=== PATIENT | female | born 1990 | race Caucasian/White ===

== ENCOUNTER 2020-05-11 20:41 | Emergency (ER) | payer MEDICAID ==
--- NOTE | 2020-05-11 21:15 | ER Document Report ---
ED Medical Screen (RME) - General Chief Complaint: Abdominal Pain Stated Complaint: ABDOMINAL PAIN Time Seen by Provider: 05/11/20 21:10 Mode of Arrival: Ambulatory Information source: Patient Notes: 29-year-old female presents to ED for lower abdominal pain. She states last menstrual cycle was January 20. She states she has not been to an GROUP CHIEF OPERATOR she has not had an official test and has not had an ultrasound. She states this is 11 para 10. States she has been in [place] for almost a year and she does not have an GROUP CHIEF OPERATOR in [place]. She denies any vaginal bleeding at this time. Does not remember if she is ever had RhoGam but she is not bleeding at this time. I have greeted and performed a rapid initial assessment of this patient. A comprehensive ED assessment and evaluation of the patient, analysis of test results and completion of medical decision making process will be conducted by an additional ED providers. Physical Exam - Vital signs Vitals: Temp Pulse Resp BP Pulse Ox 99.6 F 94 16 141/77 H 98 05/11/20 20:52 05/11/20 20:52 05/11/20 20:52 05/11/20 20:52 05/11/20 20:52 Course - Vital Signs Vital signs: Temp Pulse Resp BP Pulse Ox 99.6 F 94 16 141/77 H 98 05/11/20 20:52 05/11/20 20:52 05/11/20 20:52 05/11/20 20:52 05/11/20 20:52
--- NOTE | 2020-05-11 22:21 | RADIOLOGY REPORT (SQ) ---
Ultrasound OB follow-up on 05/11/2020 at 9:36 PM CLINICAL INDICATION: Lower abdominal cramping, last menstrual period four months ago COMPARISON: None FINDINGS: Limited sonographic images are obtained throughout the pelvis by transabdominal approach only, both transverse and sagittal images are obtained. Single living intrauterine fetus is noted in variable presentation. Cervical length measures approximately 3.5 cm and the cervix is closed. Placenta is posterior in location with no evidence of placenta previa or abruption. Positive cardiac activity is noted with heart rate of 153 bpm. Normal amount of amniotic fluid is noted with maximum vertical pocket measuring 6.2 cm. Bilateral adnexa were imaged and appear unremarkable but neither ovary was visualized. No free fluid is noted. Estimated gestational age by measurements is an approximately 19 week zero day gestation. Estimated weight is 275 g +/- 41 g. No gross abnormality is noted on limited imaging. IMPRESSION: Single living approximately 19 week intrauterine .
[2020-05-11 22:33] LABS: ABSOLUTE EOSINOPHILS # (AUTO) 0.1 10^3/uL (0.0-0.6); ABSOLUTE LYMPHOCYTES (AUTO) 2.3 10^3/uL (0.5-4.7); ABSOLUTE MONOCYTES (AUTO) 0.7 10^3/uL (0.1-1.4); ABSOLUTE NEUT (AUTO) 6.1 10^3/uL (1.7-8.2); BASOPHILS % (AUTO) 0.4 % (0-2); EOSINOPHILS % (AUTO) 1.1 % (0-6); HEMATOCRIT 32.7 % (36.0-47.0); HEMOGLOBIN 10.8 g/dL (12.0-15.5); LYMPHOCYTES % (AUTO) 24.8 % (13-45); MEAN CORPUSCULAR HEMOGLOBIN 27.3 pg (27.0-33.4); MEAN CORPUSCULAR VOLUME 83 fl (80-97); MONOCYTES % (AUTO) 7.7 % (3-13); PLATELET COUNT 256 10^3/uL (150-450); RED BLOOD COUNT 3.94 10^6/uL (3.72-5.28); RED CELL DISTRIBUTION WIDTH 15.2 % (11.5-14.0); TOTAL CELLS COUNTED % (AUTO) 100 %; WHITE BLOOD COUNT 9.2 10^3/uL (4.0-10.5)
[2020-05-11 22:34] LABS: ALBUMIN 3.8 g/dL (3.5-5.0); ALKALINE PHOSPHATASE 80 U/L (38-126); ANION GAP 5 (5-19); ASPARTATE AMINO TRANSFERASE 17 U/L (14-36); BILIRUBIN,TOTAL 0.3 mg/dL (0.2-1.3); BLOOD UREA NITROGEN 7 mg/dL (7-20); CALCIUM 9.7 mg/dL (8.4-10.2); CARBON DIOXIDE 26 mmol/L (22-30); CHLORIDE 103 mmol/L (98-107); GLUCOSE 82 mg/dL (75-110); POTASSIUM 3.9 mmol/L (3.6-5.0); TOTAL PROTEIN 7.1 g/dL (6.3-8.2)
--- NOTE | 2020-05-12 01:38 | ER Document Report ---
ED GI/ - General Chief Complaint: OB Problem (<20wks) Stated Complaint: ABDOMINAL PAIN Time Seen by Provider: 05/11/20 21:10 Primary Care Provider: [facility] [Provider Group] - [facility] - Follow up tomorrow Mode of Arrival: Ambulatory Notes: Patient is a 29-year-old female who comes emergency department for chief complaint of lower abdominal cramping in the setting of . LMP was January 20, she has not had any VACCINE MANAGER evaluation and has not had an ultrasound at this point. Patient denies current pain, she denies vaginal bleeding or any vaginal fluid/discharge, she denies dysuria, fever, vomiting, flank pain. Pat ient is G 11 P 10. Patient takes no daily medications at this time, denies any surgeries or any past medical history. Past Medical History - General Information source: Patient - Social History Smoking Status: Never Smoker Frequency of alcohol use: None Drug Abuse: None Lives with: Family Family History: Reviewed & Not Pertinent Patient has homicidal ideation: No - Medical History Medical History: Negative Surgical Hx: Negative - Immunizations Immunizations up to date: Yes Hx Diphtheria, Pertussis, Tetanus Vaccination: Yes Review of Systems - Review of Systems Constitutional: No symptoms reported EENT: No symptoms reported Cardiovascular: No symptoms reported Respiratory: No symptoms reported Gastrointestinal: See HPI Genitourinary: See HPI Female Genitourinary: See HPI Musculoskeletal: No symptoms reported Skin: No symptoms reported Hematologic/Lymphatic: No symptoms reported Neurological/Psychological: No symptoms reported Physical Exam - Vital signs Vitals: Temp Pulse Resp BP Pulse Ox 99.6 F 94 16 141/77 H 98 05/11/20 20:52 05/11/20 20:52 05/11/20 20:52 05/11/20 20:52 05/11/20 20:52 - Notes Notes: GENERAL: Alert, interacts well. No acute distress. HEAD: Normocephalic, atraumatic. EYES: Pupils equal, round, and reactive to light. Extraocular movements intact. ENT: Oral mucosa moist, tongue midline. Oropharynx unremarkable. Airway patent. NECK: Full range of motion. Supple. Trachea midline. No lymphadenopathy. LUNGS: Clear to auscultation bilaterally, no wheezes, rales, or rhonchi. No respiratory distress. Non-tender chest wall. HEART: Regular rate and rhythm. No murmur ABDOMEN: Soft, non-tender. Gravid abdomen. EXTREMITIES: Moves all 4 extremities spontaneously. No edema, normal radial and dorsalis pedis pulses bilaterally. No cyanosis. BACK: no cervical, thoracic, lumbar midline tenderness. No saddle anesthesia, normal distal neurovascular exam. Moves all extremities in full range of motion. NEUROLOGICAL: Alert and oriented x3. Normal speech. Cranial nerves II through XII grossly intact. Strength 5/5 in all extremities. PSYCH: Normal affect, normal mood. SKIN: Warm, dry, normal turgor. No rashes or lesions noted. Course - Re-evaluation Re-evalutation: Patient is well-appearing on my exam with no current complaints. Soft benign abdomen. Unremarkable vital signs. CBC, chemistry unremarkable, hCG is elevated, urinalysis shows elevated specific gravity but is otherwise unre markable. RhoGam is not indicated. Ultrasound reviewed and shows a living intrauterine with no concerning findings. No free fluid. On my evaluation patient is standing in the room and requesting to leave. Patient did sit down and discussed the results with me though, I discussed these at length, recommended better hydration to reduce cramps, discussed importance of folic acid/ vitamins, discussed follow-up and return precautions in detail. Patient states appreciation and agreement. Stable, well-appearing, asymptomatic at time of discharge. - Vital Signs Vital signs: Temp Pulse Resp BP Pulse Ox 98.3 F 67 18 110/62 100 05/12/20 03:00 05/12/20 03:00 05/12/20 03:00 05/12/20 03:00 05/12/20 03:00 - Laboratory Result Diagrams: 05/11/20 21:54 05/11/20 21:54 Laboratory results interpreted by me: 05/11/20 05/11/20 05/11/20 21:54 21:54 21:54 Hgb 10.8 L Hct 32.7 L RDW 15.2 H Sodium 134.4 L Beta HCG, Quant 88617.00 H Urine Protein 30 H Urine Urobilinogen 4.0 H Discharge - Discharge Clinical Impression: Abdominal cramping affecting Condition: Stable Disposition: HOME, SELF-CARE Additional Instructions: Your ultrasound shows a living with no concerning findings. Your evaluation does not show any concerning findings in addition to this except for dehydration. Improving your hydration can reduce your cramping. Your blood type is A positive. Follow-up with the health department and VACCINE MANAGER referrals, take folic acid ove [id number]. Return for any concerning symptoms including returned or severe pain, bleeding, passing out, fever, or any other concerning symptoms. [facility] - Follow up tomorrow [facility] [Provider Group] - Follow up as needed
[2020-05-12 01:55] LABS: APPEARANCE,URINE TURBID; BILIRUBIN,URINE NEGATIVE (NEGATIVE); CALCIUM OXALATE CRYSTALS,URINE FEW /HPF; COLOR,URINE YELLOW; GLUCOSE, URINE NEGATIVE (NEGATIVE); KETONES,URINE NEGATIVE (NEGATIVE); LEUKOCYTE ESTERASE,URINE NEGATIVE (NEGATIVE); NITRITE,URINE NEGATIVE (NEGATIVE); PROTEIN,URINE 30 mg/dL (NEGATIVE)
[2020-05-12 03:10] VITALS: BP 110/62
== END 2020-05-12 03:10 | disposition home or self-care (01) ==
LOC: ER 20:41
DX: O26.892 Other specified pregnancy related conditions, second trimester (principal); R10.30 Lower abdominal pain, unspecified; Z3A.15 15 weeks gestation of pregnancy
CPT/HCPCS: 36415; 76805; 80053; 81001; 84702; 85025; 86900; 86901; 99284

== ENCOUNTER 2020-10-05 23:03 | Inpatient (IN) | payer MEDICAID ==
[2020-10-05 23:43] LABS: APPEARANCE,URINE CLOUDY; BILIRUBIN,URINE NEGATIVE (NEGATIVE); COLOR,URINE YELLOW; GLUCOSE, URINE NEGATIVE (NEGATIVE); KETONES,URINE NEGATIVE (NEGATIVE); LEUKOCYTE ESTERASE,URINE LARGE (NEGATIVE); NITRITE,URINE NEGATIVE (NEGATIVE); PROTEIN,URINE 30 mg/dL (NEGATIVE); URINE SPECIFIC GRAVITY 1.018
[2020-10-06] LABS: URINE AMPHETAMINES SCREEN NEGATIVE; URINE BARBITURATES SCREEN NEGATIVE; URINE BENZODIAZEPINES SCREEN NEGATIVE; URINE COCAINE SCREEN NEGATIVE; URINE MARIJUANA (THC) SCREEN NEGATIVE; URINE METHADONE SCREEN NEGATIVE; URINE PHENCYCLIDINE SCREEN NEGATIVE
[2020-10-06] MEDS ORDERED: PENICILLIN G-K 5 MILLION UNIT VIAL ONE ×2 (00:42→05:02)
[2020-10-06] MEDS ORDERED: RINGERS SOLUTION,LACTATED 1,000 ML IV PRN (00:42)
[2020-10-06] MEDS ORDERED: MISOPROSTOL 0.2 MG TABLET ONE (00:42)
[2020-10-06] MEDS ORDERED: RINGERS SOLUTION,LACTATED 500 ML IV ONE (00:42)
[2020-10-06] MEDS ORDERED: PENICILLIN G POTASSIUM 5,000,000 UNIT in DEXTROSE 5%-WATER 100 ML IV ONE (00:42)
[2020-10-06] MEDS ORDERED: OXYTOCIN/0.9 % SODIUM CHLORIDE 30 UNIT/500 ML RTUINJ ONE (00:42)
[2020-10-06] MEDS ORDERED: OXYTOCIN 10 UNIT/ML VIAL ONE (00:42)
[2020-10-06] MEDS ORDERED: LIDOCAINE 1% INJ-PF (10 MG/ML) 30 ML SDV ONE (00:42)
[2020-10-06 01:12] LABS: ABSOLUTE BASOPHILS # (AUTO) 0.1 10^3/uL (0.0-0.2); ABSOLUTE EOSINOPHILS # (AUTO) 0.1 10^3/uL (0.0-0.6); ABSOLUTE LYMPHOCYTES (AUTO) 2.2 10^3/uL (0.5-4.7); ABSOLUTE MONOCYTES (AUTO) 0.6 10^3/uL (0.1-1.4); ABSOLUTE NEUT (AUTO) 6.4 10^3/uL (1.7-8.2); BASOPHILS % (AUTO) 0.9 % (0-2); EOSINOPHILS % (AUTO) 0.7 % (0-6); HEMATOCRIT 34.4 % (36.0-47.0); LYMPHOCYTES % (AUTO) 23.8 % (13-45); MEAN CORPUSCULAR HEMOGLOBIN 30.8 pg (27.0-33.4); MEAN CORPUSCULAR VOLUME 88 fl (80-97); MONOCYTES % (AUTO) 6.6 % (3-13); PLATELET COUNT 223 10^3/uL (150-450); RED BLOOD COUNT 3.91 10^6/uL (3.72-5.28); RED CELL DISTRIBUTION WIDTH 16.6 % (11.5-14.0); TOTAL CELLS COUNTED % (AUTO) 100 %; WHITE BLOOD COUNT 9.4 10^3/uL (4.0-10.5)
[2020-10-06] MEDS ORDERED: PROMETHAZINE HCL INJ 25 MG/1 ML VIAL IV ONE (01:21)
[2020-10-06] MEDS ORDERED: NALBUPHINE HCL INJ 10 MG/1 ML AMPULE IV ONE (01:21)
[2020-10-06] MEDS ORDERED: PROMETHAZINE HCL INJ 25 MG/1 ML VIAL ONE (01:23)
[2020-10-06] MEDS ORDERED: NALBUPHINE HCL INJ 10 MG/1 ML AMPULE ONE (01:23)
--- NOTE | 2020-10-06 04:35 | Admission Physical ---
Datetime Report Generated by CPN: 10/06/2020 04:35 CURRENT ADMISSION Hx Assessment: The History has been Reviewed and is Current Chief Complaint: Uterine Contractions Admit Impression : Term, Intrauterine Admit Plan: Admit to Unit; Initiate Labor Protocol ALLERGIES Medication Allergies: No Medication Allergies: No Known Allergies (10/05/2020) Latex: Latex Allergies (Annotations: Data stored by [facility] on behalf of user) OBSTETRICAL HISTORY EDC: 10/05/2020 00:00 : 11 Para: 10 Term: 10 : 0 SAB: 0 IAB: 0 Ectopic: 0 Livin Cesareans: 0 VBACs: 0 Multiple Births: 0 Gestational Diabetes: No Rh Sensitization: No Incompetent Cervix: No HAYDE: No Infertility: No ART Treatment: No Uterine Anomaly: No IUGR: No Hx Previous C/S: No Macrosomia: No Hx Loss/Stillborn: No PIH: No Hx : No Placenta Previa/Abruption: No Depression/PP Depression: No PTL/PROM: No Post Hemorrhage: No Current Procedures: Ultrasound; NST SEE RECORDS Alcohol: No Marijuana : No Cocaine: No Other Illicit Drugs: No Cigarettes: Former Smoker. [id number] MEDICAL HISTORY Diabetes: No Blood Transfusion: No Pulmonary Disease (Asthma, TB): No Breast Disease: No Hypertension: No Watch And Clock Repairer Surgery: No Heart Disease: No Hosp/Surgery: Yes Autoimmune Disorder: No Anesthetic Complications: No Kidney Disease: No Abnormal Pap Smear: No Neuro/Epilepsy: No Psychiatric Disorders: No Other Medical Diseases: No Hepatitis/Liver Disease: No Significant Family History: No Varicosities/Phlebitis: No Trauma/Violence : No Thyroid Dysfunction: No Medical History Comments: 2005, 2006, 2008, 2009, 2010, 2011, 2013, 2016, 2017, 2019 INFECTIOUS HISTORY Gonorrhea: No Genital Herpes: No Chlamydia: No Tuberculosis: No Syphilis: No Hepatitis: No HIV/AIDS Exposure: No Rash or Viral Illness: No HPV: No PHYSICAL EXAM General: Normal HEENT: Normal Neurologic: Normal Thyroid: Normal Heart: Normal Lungs: Normal Breast: Normal Back: Normal Abdomen: Normal Genitourinary Exam: Normal Extremities: Normal DTRs: Normal Pelvic Type: Adequate Vital Signs: Reviewed; Within Normal Limits VAGINAL EXAM Dilatation: 3 Effacement: 50 Station: -2 Contraction Comments: regular MEMBRANES Membranes: Intact FETUS A EGA: 40.1 Monitoring: External US FHR- Baseline: 125 Variability: Moderate 6-25bpm Accelerations: 15X15 Decelerations: None FHR Category: Category I Presentation: Vertex Admit Comment: 00 10 who presented in active labor with regular contractions and cervical change. _Admit to LDR -NPO and IVFs: LR at 125 cc/hr after 1 liter bolus -CEFM and toco -GBS positive , PCN prophylaxis -Hx of 10 prior SVDs, anticipate PLANS FOR LABOR AND DELIVERY Labor and Delivery: None Pain Management: Medications Feeding Preference: Both Circumcision: Yes INFORMED CONSENT Informed Consent Obtained: Vaginal Delivery; Section Delivery; Risks, Benefits and Alternatives Discussed Signature: with User ID: [email or web address] : with User ID: [email or web address]
[2020-10-06] MEDS: PENICILLIN G POTASSIUM 2,500,000 UNIT in DEXTROSE 5%-WATER 50 ML IV SCH (05:09)
[2020-10-06] MEDS ORDERED: IBUPROFEN 800 MG TABLET ONE (06:44)
[2020-10-06] MEDS ORDERED: GLYCERIN/WITCH HAZEL LEAF 1 EACH MED..WIPE TP PRN (06:54)
[2020-10-06] MEDS ORDERED: ACETAMINOPHEN 650 MG SUPP.RECT PR PRN (06:54)
[2020-10-06] MEDS ORDERED: DIPHENHYDRAMINE HCL 25 MG CAPSULE PO PRN (06:54)
[2020-10-06] MEDS ORDERED: BENZOCAINE/MENTHOL AEROSOL SPRAY 56 ML TOP PRN (06:54)
[2020-10-06] MEDS ORDERED: ACETAMINOPHEN 325 MG TABLET PO PRN (06:54)
[2020-10-06] MEDS ORDERED: MAG HYDROX/AL HYDROX/SIMETH SUSP 30 ML UDCUP PO PRN (06:54)
[2020-10-06] MEDS ORDERED: PSEUDOEPHEDRINE HCL 30 MG TABLET PO PRN (06:54)
[2020-10-06] MEDS ORDERED: ACETAMINOPHEN WITH CODEINE #3 TABLET PO PRN ×2 (06:54)
[2020-10-06] MEDS ORDERED: MAGNESIUM HYDROXIDE SUSP 30 ML UDCUP PO PRN (06:54)
[2020-10-06] MEDS ORDERED: DIBUCAINE 1% OINTMENT 28 GM TP PRN (06:54)
[2020-10-06] MEDS ORDERED: OXYTOCIN/0.9 % SODIUM CHLORIDE 30 UNIT/500 ML RTUINJ IV PRN (06:54)
[2020-10-06] MEDS ORDERED: DIPH/PERTUSS(ACELL)/TETANUS VAC/PF 0.5 ML SYR (>=10YO) IM PRN (06:54)
[2020-10-06] MEDS ORDERED: VARICELLA VACC/PF (1350 UNIT/0.5 ML) 0.5 ML VIAL SUBCUT PRN (06:54)
[2020-10-06] MEDS ORDERED: ZOLPIDEM TARTRATE 5 MG TABLET PO PRN (06:54)
[2020-10-06] MEDS ORDERED: FAMOTIDINE 20 MG TABLET PO PRN (06:54)
[2020-10-06] MEDS ORDERED: MEASLES,MUMPS&RUBELLA VACC/PF 0.5 ML VIAL SUBCUT PRN (06:54)
[2020-10-06] MEDS: FERROUS SULFATE 325 MG TABLET PO SCH ×2 (10:13→17:46)
[2020-10-06] MEDS: SENNOSIDES/DOCUSATE 8.6-50 MG 1 EACH TABLET PO SCH (10:13)
[2020-10-06] MEDS: PRENATAL VITAMIN W DHA CAPSULE PO SCH (10:13)
[2020-10-06] MEDS: DOCUSATE SODIUM 100 MG CAPSULE PO SCH ×2 (10:13→17:46)
--- NOTE | 2020-10-06 10:34 | PDOC PROGRESS REPORT ---
Subjective Date:: 10/06/20 Subjective:: Doing well but sleepy Reason For Visit: ADMIT Physical Exam - Physical Exam Vital Signs: Temp Pulse Resp BP Pulse Ox 97.6 F 74 18 122/66 97 10/06/20 09:56 10/06/20 09:18 10/06/20 09:18 10/06/20 09:18 10/06/20 09:18 Intake & Output 10/05/20 10/06/20 10/07/20 06:59 06:59 06:59 Weight 97.2 kg General appearance: PRESENT: no acute distress, well-developed, well-nourished Pulses: PRESENT: normal dorsalis pedis pul, +2 pedal pulses bilateral Vascular exam: PRESENT: normal capillary refill Result Laboratory Results: 10/06/20 00:57 10/05/20 10/06/20 10/06/20 23:15 00:57 00:57 WBC 9.4 RBC 3.91 Hgb 12.0 Hct 34.4 L MCV 88 MCH 30.8 MCHC 35.0 RDW 16.6 H Plt Count 223 Seg Neutrophils % 68.0 Urine Color YELLOW Urine Appearance CLOUDY Urine pH 8.0 Ur Specific [place] 1.018 Urine Protein 30 H Urine Glucose (UA) NEGATIVE Urine Ketones NEGATIVE Urine Blood MODERATE H Urine Nitrite NEGATIVE Ur Leukocyte Esterase LARGE H Blood Type Cancelled Antibody Screen Cancelled 10/06/20 01:42 WBC RBC Hgb Hct MCV MCH MCHC RDW Plt Count Seg Neutrophils % Urine Color Urine Appearance Urine pH Ur Specific [place] Urine Protein Urine Glucose (UA) Urine Ketones Urine Blood Urine Nitrite Ur Leukocyte Esterase Blood Type A POSITIVE Antibody Screen NEGATIVE Impressions: Day of delivery and doing well. Assessment & Plan - Diagnosis (1) Vaginal delivery Is this a current diagnosis for this admission?: Yes - Time Time Spent with patient: Less than 15 minutes Medications reviewed and adjusted accordingly: Yes Anticipated discharge: Home Anticipated DC Timeframe: within 48 hours
[2020-10-06] MEDS: IBUPROFEN 800 MG TABLET PO SCH ×3 (15:28→21:23)
[2020-10-07] MEDS: IBUPROFEN 800 MG TABLET PO SCH ×3 (05:54→21:15)
[2020-10-07 06:58] LABS: HEMATOCRIT 30.4 % (36.0-47.0); HEMOGLOBIN 10.3 g/dL (12.0-15.5); MEAN CORPUSCULAR HEMOGLOBIN 30.5 pg (27.0-33.4); MEAN CORPUSCULAR VOLUME 90 fl (80-97); PLATELET COUNT 193 10^3/uL (150-450); RED BLOOD COUNT 3.39 10^6/uL (3.72-5.28); RED CELL DISTRIBUTION WIDTH 16.8 % (11.5-14.0); WHITE BLOOD COUNT 8.2 10^3/uL (4.0-10.5)
[2020-10-07] MEDS: SENNOSIDES/DOCUSATE 8.6-50 MG 1 EACH TABLET PO SCH (10:21)
[2020-10-07] MEDS: DOCUSATE SODIUM 100 MG CAPSULE PO SCH ×2 (10:21→17:19)
[2020-10-07] MEDS: FERROUS SULFATE 325 MG TABLET PO SCH ×2 (10:21→17:19)
[2020-10-07] MEDS: PRENATAL VITAMIN W DHA CAPSULE PO SCH (10:21)
--- NOTE | 2020-10-07 12:56 | PDOC PROGRESS REPORT ---
Subjective-OB Progress Note for:: 10/07/20 Subjective: reports bleeding slowing, pain controlled with current meds. denies needs Physical Exam (OB) Vital Signs: Temp Pulse Resp BP Pulse Ox 98.0 F 68 15 115/73 100 10/07/20 08:17 10/07/20 08:17 10/07/20 08:17 10/07/20 08:17 10/07/20 08:17 Intake & Output 10/06/20 10/07/20 10/08/20 06:59 06:59 06:59 Intake Total 120 Balance 120 Weight 97.2 kg - Maternal Morbidity 59. Maternal Morbidity (serious complications experinced by the mother associated with labor and delivery: None of the above - Abdomen Description: Soft Hernia Present: No Fundal Description: Firm, Midline Fundal Height: u/u - u/2 - Abdominal Distension: No distension Tenderness: Nontender - Extremities Lower extremities: Sagar's sign - neg Calf: Normal, Nontender Objective-Diagnostic Laboratory: 10/07/20 06:25 10/07/20 06:25 WBC 8.2 RBC 3.39 L Hgb 10.3 L Hct 30.4 L MCV 90 MCH 30.5 MCHC 34.0 RDW 16.8 H Plt Count 193 Assessment and Plan(PN) - Assessment and Plan (1) Active labor Is this a current diagnosis for this admission?: Yes (2) Vaginal delivery Is this a current diagnosis for this admission?: Yes - Time Spent with Patient Time with patient: Less than 15 minutes Medications reviewed and adjusted accordingly: Yes - Disposition Anticipated Discharge Disposition: Home, Self Care Anticipated Discharge Timeframe: within 24 hours
[2020-10-07] MEDS: PENICILLIN G POTASSIUM 2,500,000 UNIT in DEXTROSE 5%-WATER 50 ML IV SCH (23:34)
[2020-10-08] MEDS: IBUPROFEN 800 MG TABLET PO SCH (05:54)
[2020-10-08 07:43] VITALS: BP 114/68
[2020-10-08] MEDS: FERROUS SULFATE 325 MG TABLET PO SCH (09:22)
[2020-10-08] MEDS: DOCUSATE SODIUM 100 MG CAPSULE PO SCH (09:22)
[2020-10-08] MEDS: SENNOSIDES/DOCUSATE 8.6-50 MG 1 EACH TABLET PO SCH (09:22)
[2020-10-08] MEDS: PRENATAL VITAMIN W DHA CAPSULE PO SCH (09:22)
--- NOTE | 2020-10-08 10:50 | PDOC DISCHARGE SUMMARY ---
Impression - Admit/DC Date/PCP Admission Date/Primary Care Provider: 10/06/20 00:47 Discharge Date: 10/08/20 - Discharge Diagnosis (1) Active labor Is this a current diagnosis for this admission?: Yes (2) Vaginal delivery Is this a current diagnosis for this admission?: Yes - Additional Information Discharge Diet: Regular Discharge Activity: Balance Activity w/Rest, Pelvic Rest Prescriptions: Ibuprofen [Motrin 800 mg Tablet] 800 mg PO Q8HP PRN #60 tablet PRN Reason: Home Medications: Ibuprofen [Motrin 800 mg Tablet] 800 mg PO Q8HP PRN #60 tablet 10/08/20 Hospital Course 59. Maternal Morbidity (serious complications experinced by the mother associated with labor and delivery: None of the above Results Laboratory Results: WBC 8.2 10^3/uL (4.0-10.5) 10/07/20 06:25 RBC 3.39 10^6/uL (3.72-5.28) L 10/07/20 06:25 Hgb 10.3 g/dL (12.0-15.5) L 10/07/20 06:25 Hct 30.4 % (36.0-47.0) L 10/07/20 06:25 MCV 90 fl (80-97) 10/07/20 06:25 MCH 30.5 pg (27.0-33.4) 10/07/20 06:25 MCHC 34.0 g/dL (32.0-36.0) 10/07/20 06:25 RDW 16.8 % (11.5-14.0) H 10/07/20 06:25 Plt Count 193 10^3/uL (150-450) 10/07/20 06:25 Lymph % (Auto) 23.8 % (13-45) 10/06/20 00:57 [place] % (Auto) 6.6 % (3-13) 10/06/20 00:57 Eos % (Auto) 0.7 % (0-6) 10/06/20 00:57 Baso % (Auto) 0.9 % (0-2) 10/06/20 00:57 Absolute Neuts (auto) 6.4 10^3/uL (1.7-8.2) 10/06/20 00:57 Absolute Lymphs (auto) 2.2 10^3/uL (0.5-4.7) 10/06/20 00:57 Absolute Monos (auto) 0.6 10^3/uL (0.1-1.4) 10/06/20 00:57 Absolute Eos (auto) 0.1 10^3/uL (0.0-0.6) 10/06/20 00:57 Absolute Basos (auto) 0.1 10^3/uL (0.0-0.2) 10/06/20 00:57 Seg Neutrophils % 68.0 % (42-78) 10/06/20 00:57 Urine Color YELLOW 10/05/20 23:15 Urine Appearance CLOUDY 10/05/20 23:15 Urine pH 8.0 (5.0-9.0) 10/05/20 23:15 Ur Specific [place] 1.018 10/05/20 23:15 Urine Protein 30 mg/dL (NEGATIVE) H 10/05/20 23:15 Urine Glucose (UA) NEGATIVE mg/dL (NEGATIVE) 10/05/20 23:15 Urine Ketones NEGATIVE mg/dL (NEGATIVE) 10/05/20 23:15 Urine Blood MODERATE (NEGATIVE) H 10/05/20 23:15 Urine Nitrite NEGATIVE (NEGATIVE) 10/05/20 23:15 Urine Bilirubin NEGATIVE (NEGATIVE) 10/05/20 23:15 Urine Urobilinogen 4.0 mg/dL (<2.0) H 10/05/20 23:15 Ur Leukocyte Esterase LARGE (NEGATIVE) H 10/05/20 23:15 Urine Ascorbic Acid NEGATIVE (NEGATIVE) 10/05/20 23:15 Urine Opiates Screen NEGATIVE 10/05/20 23:15 Urine Methadone Screen NEGATIVE 10/05/20 23:15 Ur Barbiturates Screen NEGATIVE 10/05/20 23:15 Ur Phencyclidine Scrn NEGATIVE 10/05/20 23:15 Ur Amphetamines Screen NEGATIVE 10/05/20 23:15 U Benzodiazepines Scrn NEGATIVE 10/05/20 23:15 Urine Cocaine Screen NEGATIVE 10/05/20 23:15 U Marijuana (THC) Screen NEGATIVE 10/05/20 23:15 RPR NONREACTIVE (NONREACTIVE) 10/06/20 01:42 Blood Type A POSITIVE 10/06/20 01:42 Antibody Screen NEGATIVE 10/06/20 01:42 Plan Plan of Treatment: follow up in 4 weeks at [facility] for post check
--- NOTE | 2020-10-11 08:45 | Delivery Summary ---
Del Sum A-C Datetime Report Generated by CPN: 10/11/2020 08:45 DELIVERY PERSONNEL DELIVERY PERSONNEL: [id number] Delivery Doctor:: Ayana Warren MD Delivery Doctor:: Ayana Warren MD Labor and Delivery Nurse:: Seema Granados RNboilermaker fitter Nurse:: Seema Granados RNboilermaker fitter Nurse:: Seema Granados RNboilermaker fitter Nurse:: Ely Adkins RNboilermaker fitter Nurse:: Seema Granados RN Flight Crew Scheduler/BREAKER UP: Aydee Merino ST Flight Crew Scheduler/BREAKER UP: Aydeemarily Merino, ST Flight Crew Scheduler/BREAKER UP: Aydee Green, ST MATERNAL INFORMATION Delivery Anesthesia: None Delivery Anesthesia: Local Delivery Anesthesia: None Medications After Delivery: Pitocin Bolus-Please Comment; Pitocin 30 Units in 500ml NS/D5W Medications After Delivery: Pitocin 30 Units in 500ml NS/D5W Estimated Blood Loss (ml): 250 Maternal Complications: None Maternal Complications: None Provider Comments: Called to patients room as she was complete and +2. She began pushing and a forebag was noted and ruptured. Clear fluid noted. She pushed a few more times and then delivered a viable male over an intact perineum. After head delivered the shoulders and rest of the body delivered easily. was vigorous and cord clamping delayed for 30 seconds. Cord doubly clamped and cut. Infant placed skin to skin. Both Mother and infant stable. LABOR SUMMARY EDC: 10/05/2020 00:00 No. Babies in Womb: 1 Attempted: No Labor Anesthesia: None Labor Anesthesia: IV Sedation LABOR INFORMATION Reason for Induction: Not Applicable Reason for Induction: Not Applicable Onset of Labor: 10/06/2020 04:05 Complete Dilatation: 10/06/2020 05:54 Oxytocin: N/A Group B Beta Strep: positive Antibiotics # of Doses: 1 Antibiotics # of Doses: 2 Antibiotics Time of Last Dose: 10/06/2020 05:09 Name of Antibiotic Given: Penicillin Name of Antibiotic Given: penicillin Steroids Given: None Steroids Given: None Reason Steroids Not Administered: Not Applicable Reason Steroids Not Administered: Not Applicable MEMBRANES Membranes Rupture Method: Artificial Rupture of Membranes: 10/06/2020 06:07 Length of Rupture (hr): 0.20 Amniotic Fluid Color: Clear Amniotic Fluid Amount: Moderate Amniotic Fluid Odor: Normal STAGES OF LABOR Stage 1 hr: 1 Stage 1 min: 49 Stage 2 hr: 0 Stage 2 min: 25 Stage 3 hr: 0 Stage 3 min: 4 Total Time in Labor hr: 2 Total Time in Labor min: 18 VAGINAL DELIVERY Episiotomy: None Laceration #1: None Laceration Repair: Not Applicable Sponge Count Correct: N/A Sharps Count Correct: N/A CSECTION DELIVERY Primary Indication: N/A Secondary Indication: N/A BABY A INFORMATION Delivery Date/Time: 10/06/2020 06:19 Method of Delivery: Vaginal Nurse Controlled Delivery: No Born in Route : No : N/A Forceps: N/A Vacuum Extraction: N/A Shoulder Dystocia : No PRESENTATION/POSITION BABY A Presentation: Cephalic Cephalic Presentation: Vertex Vertex Position: Right Occipital Anterior Breech Presentation: N/A PLACENTA INFORMATION BABY A Placenta Delivery Time : 10/06/2020 06:23 Placenta Method of Delivery: Spontaneous Placenta Status: Delivered SCORES BABY A Heart Rate 1 min: >100 bpm Resp Effort 1 min: Good Cry Reflex Irritability 1 min: Cough or Sneeze or Pulls Away Muscle Tone 1 min: Active Motion Color 1 min: Blue/Pale Resuscitation Effort 1 min: Tactile Stimulation SCORE 1 MIN: 8 Heart Rate 5 min: >100 bpm Resp Effort 5 min: Good Cry Reflex Irritability 5 min: Cough or Sneeze or Pulls Away Muscle Tone 5 min: Active Motion Color 5 min: Body Williams, Extremities Blue Resuscitation Effort 5 min: Tactile Stimulation SCORE 5 MIN: 9 INFORMATION BABY A Gestational Age at Delivery: 40.1 Gestational Status: Full Term- 39- 40.6 Weeks Outcome : Liveborn Infant Condition : Stable Sex: Male IDENTIFICATION BABY A Infant Verification Date/Time: 10/06/2020 06:36 ID Band Number: [id number] Mother's Name Verified: Yes Infant RN Verifying : Kumar Adkins, RN/ DRhona Andrade, RNC WEIGHT/LENGTH BABY A Infant Birthweight (gm): 3490 Weight (lb): 7 Weight (oz): 11 Length (in): 19.00 Infant Length (cm): 48.26 CORD INFORMATION BABY A No. Cord Vessels: 3 Nuchal Cord : N/A Cord Blood Taken: Yes-For Storage (Mom's Blood type +) Infant Suction: Mouth ASSESSMENT BABY A Complications: None Physical Findings at Delivery: Within Normal Limits Infant Respirations: Appears Normal Skin to Skin: Yes Wrapper Sizer/ALS Called : No Care By: Kumar Adkins RN Transferred To: Remains with Mother BABY B INFORMATION : N/A SIGNATURES Signature: with User ID: [email or web address] : with User ID: [email or web address]
== END 2020-10-08 12:07 | disposition home or self-care (01) | DRG 807 ==
LOC: LC 23:03 → LR 10-06 00:47 → 2S 10-06 09:02
PROVIDERS: ADMIT Obstetrics & Gynecology; ATTEND Obstetrics & Gynecology
PROC: 10E0XZZ Delivery of Products of Conception, External Approach (ICD-10-PCS; principal; 2020-10-06)
PROC: 10907ZC Drainage of Amniotic Fluid, Therapeutic from Products of Conception, Via Natural or Artificial Opening (ICD-10-PCS; 2020-10-06)
DX: O99.824 Streptococcus B carrier state complicating childbirth (principal); Z37.0 Single live birth; Z20.822 Contact with and (suspected) exposure to COVID-19; Z91.040 Latex allergy status; Z87.891 Personal history of nicotine dependence; Z3A.40 40 weeks gestation of pregnancy
CPT/HCPCS: 36415; 80307; 81005; 85025; 85027; 86592; 86850; 86900; 86901; J2300; J2540; J2550; J2590; J3490; J7060